=== PATIENT | male | born 1960 | race Caucasian/White ===

== ENCOUNTER → 2016-09-20 | Outpatient (CLI) | payer OTHER ==
[2014-05-29 07:22] VITALS: BP 161/86
[~2016-09-20] MED LIST: IBUP200T43 PO; LISI1TAB7 PO; ZOLP5TAB PO
--- NOTE | 2016-09-20 11:43 | RAD ---
Indication back pain. AP lateral and oblique views of the lumbar spine were obtained as well as a coned view targeted to the lumbosacral junction. There is disc space narrowing at L3-4, L4-5 and L5-S1. Degenerative endplate changes are seen at L3-4 and L5-S1. Vacuum disc phenomenon is noted at L2-3, L3-4 L4-5 and L5-S1. Small osteophytes are seen at multiple levels. An acute finding is not apparent. Facet degenerative changes are noted in the lower lumbar spine. IMPRESSION: Spondylitic changes. No acute finding seen
== END | disposition home or self-care (01) ==
LOC: DXRADRC 11:17
PROVIDERS: ATTEND Family Medicine
DX: M54.5 Low back pain (principal)
CPT/HCPCS: 72110

== ENCOUNTER → 2018-03-05 | Outpatient (CLI) | payer BC ==
[2014-05-29 07:22] VITALS: BP 161/86
[~2018-03-05] MED LIST changes: -IBUP200T43 PO; +IBUP200T44 PO; +IOHEXOL 240 MG/ML 50ML VIAL. ONE; +IOHEXOL 300 MG/ML 75 ML VIAL. IV ONE
--- NOTE | 2018-03-06 11:03 | RAD ---
CT of the abdomen and pelvis with contrast, 03/05/2018: HISTORY: Increasing abdominal pain, ventral hernia Comparison is made to a study from 04/01/2011. Moderate coronary artery calcifications are present. No hepatic abnormality is seen. The gallbladder is unremarkable. The pancreas shows no abnormality. The spleen is of normal size. Single simple cysts are present in both kidneys. The largest of these lies on the right and measures 3 cm. The kidneys show no evidence of obstruction. No adrenal abnormality is detected. Aortic calcific plaquing is present without evidence of aneurysm. No abdominal or pelvic adenopathy is seen. Prostatic calcifications are present. Scattered colonic diverticula are present without evidence of paracolic inflammation. There has been resection of a portion of the right colon. The duodenum and proximal small bowel are dilated. The point of partial obstruction lies at the level of a large ventral hernia, just to the right of midline. The small bowel loops distal to this level are not dilated although some of these loops reenter a different portion of the hernia. This hernia appears to be slightly complex with several adjacent fascial defects. No free air or free fluid is evident in the abdomen or pelvis. Moderate multilevel degenerative change is present in the lower lumbar spine with central spinal and foraminal stenosis at several levels. IMPRESSION: 1. Moderate partial small bowel obstruction related to a large ventral hernia as described above. 2. Sigmoid diverticulosis. 3. Additional miscellaneous chronic findings as described above. PQRS Compliance Statement: One or more of the following individualized dose reduction techniques were utilized for this examination: 1. Automated exposure control 2. Adjustment of the mA and/or kV according to patient size 3. Use of iterative reconstruction technique Electronically signed by: Usama Parada MD (03/06/2018 10:59 AM) [facility]
== END | disposition home or self-care (01) ==
LOC: PMG 15:49
PROVIDERS: ATTEND Family Medicine
DX: K43.9 Ventral hernia without obstruction or gangrene (principal); K56.690 Other partial intestinal obstruction; K57.30 Diverticulosis of large intestine without perforation or abscess without bleeding; N28.1 Cyst of kidney, acquired; I10 Essential (primary) hypertension; Z90.49 Acquired absence of other specified parts of digestive tract; Z85.9 Personal history of malignant neoplasm, unspecified; Z88.2 Allergy status to sulfonamides
CPT/HCPCS: 74177; Q9966; Q9967

== ENCOUNTER 2018-03-06 13:19 | Emergency (ER) | payer BC ==
[~2018-03-06] VITALS: Ht 172.7 cm; Wt 83.0 kg
[~2018-03-06 13:19] MED LIST changes: -IOHEXOL 240 MG/ML 50ML VIAL. ONE; -IOHEXOL 300 MG/ML 75 ML VIAL. IV ONE
--- NOTE | 2018-03-06 13:46 | PHYS DOC ---
Past History Past Medical History: Anxiety, Cancer, Diverticulitis, Hypertension, Other Past Surgical History: Colectomy, Other Alcohol Use: None Drug Use: None Adult General Chief Complaint Chief Complaint: GI PROBLEM [facility] Patient is a 57 year old male who presents with complaining of abdominal pain. Patient states he had colon cancer surgery in 2001 with a large ventral hernia. Patient states for the last 4 days he has had upper abdominal pain as a constant and sharp pain without radiation associated with nausea and anorexia and decrease of bowel movement and flatus. Patient was seen by his primary care physician yesterday and had CT of abdomen and pelvis that showed small bowel obstruction related to ventral hernia. Patient was seen by his primary care physician today and was sent to emergency room for further evaluation and treatment. Patient rated his pain 5/10 and denies fever and chills and urinary symptom, focal neuro deficit, chest pain and shortness of breath. Review of Systems Review of Systems Constitutional: Denies fever or chills [] Eyes: Denies change in visual acuity, redness, or eye pain [] HENT: Denies nasal congestion or sore throat [] Respiratory: Denies cough or shortness of breath [] Cardiovascular: No additional information not addressed in HPI [] GI: Reports abdominal pain, nausea, denies vomiting, bloody stools or diarrhea [ ] : Denies dysuria or hematuria [] Musculoskeletal: Denies back pain or joint pain [] Integument: Denies rash or skin lesions [] Neurologic: Denies headache, focal weakness or sensory changes [] Endocrine: Denies polyuria or polydipsia [] All other systems were reviewed and found to be within normal limits, except as documented in this note. Allergies Allergies Allergies Coded Allergies Type Severity Reaction Last Updated Verified Sulfa (Sulfonamide Antibiotics) Allergy Unknown 05/29/14 No Physical Exam Physical Exam Constitutional: Well developed, well nourished, mild distress, non-toxic appearance. [] HENT: Normocephalic, atraumatic, bilateral external ears normal, oropharynx moist, no oral exudates, nose normal. [] Eyes: PERRLA, EOMI, conjunctiva normal, no discharge. [] Neck: Normal range of motion, no tenderness, supple, no stridor. [] Cardiovascular:Heart rate regular rhythm, no murmur [] Lungs & Thorax: Bilateral breath sounds clear to auscultation [] Abdomen: Bowel sounds increased, soft, no tenderness, no masses, large lower abdominal menstrual hernia with 5 x 5 cm tender mass .] Skin: Warm, dry, no erythema, no rash. [] Back: No tenderness, no CVA tenderness. [] Extremities: No tenderness, no cyanosis, no clubbing, ROM intact, no edema. [] Neurologic: Alert and oriented X 3, normal motor function, normal sensory function, no focal deficits noted. [] Psychologic: Affect normal, judgement normal, mood normal. [] Current Patient Data Vital Signs Vital Signs Date Time Temp Pulse Resp B/P (MAP) Pulse Ox O2 Delivery O2 Flow Rate FiO2 03/06/18 13:40 98.4 85 24 97 Room Air EKG EKG [] Radiology/Procedures Radiology/Procedures [address] [id number] IMAGING REPORT Signed PATIENT: ROSI MENDOZA ACCOUNT: [id number] : 1960 LOCATION: CT AGE: 57 SEX: M EXAM STATUS: REG CLI ORD. PHYSICIAN: NELLA STEINBERG MD REASON: VENTRAL HERNIA PROCEDURE: CT ABD PELV W/ORAL&IV CONTRAST CT of the abdomen and pelvis with contrast, 03/05/2018: HISTORY: Increasing abdominal pain, ventral hernia Comparison is made to a study from 04/01/2011. Moderate coronary artery calcifications are present. No hepatic abnormality is seen. The gallbladder is unremarkable. The pancreas shows no abnormality. The spleen is of normal size. Single simple cysts are present in both kidneys. The largest of these lies on the right and measures 3 cm. The kidneys show no evidence of obstruction. No adrenal abnormality is detected. Aortic calcific plaquing is present without evidence of aneurysm. No abdominal or pelvic adenopathy is seen. Prostatic calcifications are present. Scattered colonic diverticula are present without evidence of paracolic inflammation. There has been resection of a portion of the right colon. The duodenum and proximal small bowel are dilated. The point of partial obstruction lies at the level of a large ventral hernia, just to the right of midline. The small bowel loops distal to this level are not dilated although some of these loops reenter a different portion of the hernia. This hernia appears to be slightly complex with several adjacent fascial defects. No free air or free fluid is evident in the abdomen or pelvis. Moderate multilevel degenerative change is present in the lower lumbar spine with central spinal and foraminal stenosis at several levels. IMPRESSION: 1. Moderate partial small bowel obstruction related to a large ventral hernia as described above. 2. Sigmoid diverticulosis. 3. Additional miscellaneous chronic findings as described above. PQRS Compliance Statement: One or more of the following individualized dose reduction techniques were utilized for this examination: 1. Automated exposure control 2. Adjustment of the mA and/or kV according to patient size 3. Use of iterative reconstruction technique Electronically signed by: Usama Parada MD (03/06/2018 10:59 AM) [facility] DICTATED AND SIGNED BY: USAMA PARADA MD DATE: 03/06/18 1042 CC: NELLA STEINBERG MD ~ Course & Med Decision Making Course & Med Decision Making Pertinent Labs and Imaging studies reviewed. (See chart for details) Evaluation of patient in ER showed 57-year-old male patient sent from his primary care physician office to emergency room because of small bowel obstruction related to large ventral hernia. Patient had unremarkable labs and treated with 1 dose of pain medication and IV fluid and felt better. Dr. Alanis on-call surgeon at [facility] informed at [address] Arteaga on-call hospitalist accepted patient at 1350 to [facility]. Dragon Disclaimer Dragon Disclaimer This electronic medical record was generated, in whole or in part, using a voice recognition dictation system. Departure Departure: Impression: Primary Impression: Small bowel obstruction Additional Impression: Ventral hernia Disposition: 02 XFER SHT-TRM HOSP ([facility] at 1351 , Dr. Arteaga accepted admission at 1350) Condition: IMPROVED Referrals: NELLA STEINBERG MD (PCP) Problem Qualifiers JOMAR MIN MD Mar 06, 2018 13:46
[2018-03-06 14:12] LABS: BASO # 0.1 x10^3/uL (0.0-0.2); BASO % 1 % (0-3); EOS # 0.1 x10^3/uL (0.0-0.7); EOS % 1 % (0-3); HEMOGLOBIN 16.1 g/dL (13.0-17.5); LYMPH # 1.5 x10^3/uL (1.0-4.8); LYMPH % 14 % (24-48); MEAN CORPUSCULAR HEMOGLOBIN 29 pg (25-35); MEAN CORPUSCULAR HGB CONC 34 g/dL (31-37); MEAN CORPUSCULAR VOLUME 86 fL (79-100); MONO # 1.2 x10^3/uL (0.0-1.1); MONO % 11 % (0-9); NEUT # 7.8 x10^3uL (1.8-7.7); NEUT % 73 % (31-73); PLATELET COUNT 310 x10^3/uL (140-400); RED BLOOD COUNT 5.48 x10^6/uL (4.30-5.70); RED CELL DISTRIBUTION WIDTH 13.5 % (11.5-14.5); WHITE BLOOD COUNT 10.7 x10^3/uL (4.0-11.0)
[2018-03-06 14:24] LABS: ALBUMIN 3.9 g/dL (3.4-5.0); CALCIUM 8.7 mg/dL (8.5-10.1); GFR 76.7; POTASSIUM 3.4 mmol/L (3.5-5.1); TOTAL BILIRUBIN 0.7 mg/dL (0.2-1.0); TOTAL PROTEIN 7.8 g/dL (6.4-8.2)
[2018-03-06] MEDS ORDERED: IV NORMAL SALINE 1,000ML 1,000 ML IV ONE (14:30)
[2018-03-06 15:10] LABS: BACTERIA,URINE 0 /HPF (0-FEW); BILIRUBIN,URINE NEG (NEG); CLARITY,URINE CLEAR; COLOR,URINE YELLOW; GLUCOSE,URINE NEG (NEG); NITRITE,URINE NEG (NEG); RBC,URINE 0 /HPF (0-2); UROBILINOGEN,URINE 0.2 mg/dL (0.2 mg/dL); WBC,URINE 0 /HPF (0-4)
[2018-03-06 15:11] LABS: HYALINE CASTS, URINE OCC /HPF
[2018-03-06 16:15] VITALS: BP 118/75
== END 2018-03-06 15:55 | disposition short-term general hospital (02) ==
LOC: ER 13:19
DX: K56.609 Unspecified intestinal obstruction, unspecified as to partial versus complete obstruction (principal); K43.9 Ventral hernia without obstruction or gangrene; I10 Essential (primary) hypertension; Z90.49 Acquired absence of other specified parts of digestive tract; Z88.2 Allergy status to sulfonamides
CPT/HCPCS: 36415; 80053; 81001; 83690; 85025; 85610; 85730; 96374; 99285; J3010; J7030